=== PATIENT | male | born 1990 | race Caucasian/White ===

== ENCOUNTER 2021-12-15 09:34 | Day surgery (SDC) | payer BC ==
[2021-12-13 16:03] VITALS: BMI 27.6
[2021-12-15] MEDS ORDERED: Iothalamate Meglumine 60% 50 ML VIAL FS ONE (11:29)
[2021-12-15] MEDS ORDERED: Fentanyl 250 MCG/5 ML VIAL ONE (11:30)
[2021-12-15] MEDS ORDERED: Levofloxacin 500 mg/D5W 100 ml Premix Bag ONE (11:41)
[2021-12-15] MEDS ORDERED: Lidocaine 1% PF 5 ML VIAL ONE (11:44)
[2021-12-15] MEDS ORDERED: Dexamethasone 20 MG/5 ML VIAL ONE (11:44)
[2021-12-15] MEDS ORDERED: Ondansetron PF 4 MG/2 ML Vial ONE (11:44)
[2021-12-15] MEDS ORDERED: Ketorolac Tromethamine 30 MG/ML VIAL ONE (11:44)
[2021-12-15] MEDS ORDERED: PROPOFOL 200 MG/20 ML VIAL ONE (11:44)
[2021-12-15] MEDS ORDERED: Phenazopyridine HCl 100 MG TAB ONE (12:30)
[2021-12-15] MEDS ORDERED: Oxybutynin 5 MG TAB ONE (12:31)
== END 2021-12-15 13:40 | disposition home or self-care (01) ==
LOC: SDC 09:34
PROVIDERS: ATTEND Urology
PROC: 0T768DZ Dilation of Right Ureter with Intraluminal Device, Via Natural or Artificial Opening Endoscopic (ICD-10-PCS; principal; 2021-12-15)
DX: N13.2 Hydronephrosis with renal and ureteral calculous obstruction (principal); Z88.8 Allergy status to other drugs, medicaments and biological substances
CPT/HCPCS: 74420; C2617; J1956; J3010; Q9961-U8

== ENCOUNTER 2024-08-27 13:45 | Observation (INO) | payer BC, SELFPAY ==
[2024-08-27 14:16] LABS: #Basophils 0.05 10x3/uL (0.0-0.2); %Basophils 0.8 % (0.0-1.0); %Eosinophils 1.5 % (0.0-10.0); %Lymphocytes 37.3 % (21.0-51.0); %Monocytes 7.6 % (0.0-10.0); %Neutrophils 52.6 % (42.0-75.0); Hematocrit 40.3 % (42.0-52.0); Hemoglobin 14.1 g/dL (14.0-18.0); Mean Corpuscular Hemoglobin 31.8 pg (27.0-31.0); Mean Corpuscular Volume 90.8 fL (78.0-98.0); Mean Platelet Volume 9.3 fL (7.4-10.4); Platelet Count 174 10x3/uL (130-400); RBC Distribution Width 11.9 % (11.5-14.5); Red Blood Cell (RBC) Count 4.44 mill/uL (4.70-6.10)
[2024-08-27 14:37] LABS: ALT (SGPT) 31 U/L (8-55); AST (SGOT) 31 U/L (5-34); Albumin 4.1 g/dL (3.5-5.0); Alkaline Phosphatase 89 U/L (40-110); Anion Gap 14 mmol/L (10-20); BUN (Urea Nitrogen) 13 mg/dL (8.9-20.6); Bilirubin, Total 0.6 mg/dL (0.2-1.2); Calc. Creatinine Clearance 0 mL/min (70-130); Calcium 8.6 mg/dL (7.8-10.44); Carbon Dioxide 21 mmol/L (22-29); Chloride 107 mmol/L (98-107); Estimated GFR 86; Globulin 2.8 g/dL (2.4-3.5); Glucose 98 mg/dL (70-105); Lipase 30 U/L (8-78); Potassium 4.3 mmol/L (3.5-5.1); Protein, Total 6.9 g/dL (6.0-8.3); Sodium 138 mmol/L (136-145)
[2024-08-27] MEDS ORDERED: Morphine 4 MG/ML VIAL SLOW IVP PRN (15:11)
[2024-08-27] MEDS ORDERED: Ketorolac Tromethamine 30 MG (1 mL) VIAL IVP PRN (15:11)
[2024-08-27] MEDS ORDERED: HYDROcodone/Acetaminophen 5/325 mg Tablet PO PRN ×2 (15:11)
[2024-08-27] MEDS ORDERED: Mag-Al 1200 mg/1200 mg/30 ML UDCUP PO PRN (15:11)
[2024-08-27] MEDS ORDERED: Ketorolac Tromethamine 30 MG (1 mL) VIAL ONE (15:21)
[2024-08-27] MEDS ORDERED: HYDROmorphone 0.5 MG/0.5 ML SYRINGE ONE (16:01)
[2024-08-27 17:18] LABS: Bacteria/HPF None Seen HPF (None Seen); Bilirubin Negative (Negative); Blood, Urine 3+ (Negative); CAUTI Indications for Culture Pelvic or flank pain; Calcium Oxalate Crystals 1+ HPF (None Seen); Clarity Clear (Clear); Glucose, Urine (Dipstick) Normal (Negative); Ketone, Urine Negative (Negative); Leukocyte 250 Leu/uL (Negative); Nitrite Negative (Negative); Protein, Urine (Dipstick) 70 mg/dL (Neg-Trace); RBC/HPF Greater than 50 HPF (0-3); Specific Gravity, Urine 1.043 (1.002-1.036); Squamous Epithelial None Seen HPF (0-3); Urobilinogen Normal mg/dL (Less than 2); WBC/HPF 21-50 HPF (0-3)
[2024-08-27 17:20] LABS: Urine Culture Reflex Yes Yes
[2024-08-27 17:28] VITALS: BMI 28.2
[2024-08-27] MEDS: Ondansetron PF 4 MG/2 ML Vial IVP PRN (18:09)
[2024-08-27] MEDS: Morphine 2 MG/ML VIAL SLOW IVP PRN (18:09)
[2024-08-27] MEDS: FLU (Fluarix Triv) TS24-25(6MOS UP)/PF 45 MCG/0.5 ML Syringe IM ONE (18:10)
[2024-08-27] MEDS: D5 1/2 NS w/10 mEq KCl 1,000 ML/1,000 ML BAG IV SCH (20:39)
[2024-08-27] MEDS: Promethazine HCl 25 MG in Sodium Chloride 0.9% 50 ML IVPB SCH (20:40)
[2024-08-28] MEDS ORDERED: cefTRIAXone\\ROCEPHIN 1 GM in Sodium Chloride 0.9% 100 ML IVPB SCH (00:01)
[2024-08-28] MEDS ORDERED: Sodium Chloride 0.9% 1,000 ML IV SCH (00:01)
[2024-08-28] MEDS: Tamsulosin HCl 0.4 MG CAP PO SCH (09:03)
[2024-08-28] MEDS ORDERED: Lidocaine 2% PF 5 ML VIAL ONE (11:47)
[2024-08-28] MEDS ORDERED: PROPOFOL 20 ML ONE ×2 (11:47→13:25)
[2024-08-28] MEDS ORDERED: fentaNYL PF 100 MCG/2 ML SYRINGE ONE (12:48)
[2024-08-28] MEDS ORDERED: Midazolam HCl 2 mg/2 ml Vial ONE (12:49)
[2024-08-28] MEDS ORDERED: Dexamethasone 4 mg/ml Vial ONE (13:14)
[2024-08-28] MEDS ORDERED: Ondansetron PF 4 MG/2 ML Vial ONE (13:14)
[2024-08-28] MEDS ORDERED: Ketorolac Tromethamine 30 MG (1 mL) VIAL ONE (13:38)
[2024-08-28] MEDS: Oxybutynin 5 MG TAB PO PRN (15:25)
[2024-08-29 07:37] VITALS: BP 131/81; TEMP 97.4
== END 2024-08-28 17:24 | disposition home or self-care (01) ==
LOC: ERS 13:45 → SURG B 16:56
PROVIDERS: ADMIT Urology; ATTEND Urology
PROC: 0TF68ZZ Fragmentation in Right Ureter, Via Natural or Artificial Opening Endoscopic (ICD-10-PCS; principal; 2024-08-28)
PROC: 0T768DZ Dilation of Right Ureter with Intraluminal Device, Via Natural or Artificial Opening Endoscopic (ICD-10-PCS; 2024-08-28)
DX: N20.1 Calculus of ureter (principal); Z87.442 Personal history of urinary calculi; Z90.89 Acquired absence of other organs; Z88.8 Allergy status to other drugs, medicaments and biological substances
CPT/HCPCS: 36415; 74176; 74420; 80053; 81001; 82365; 83605; 83690; 85025; 87086; 88300; 94760; 96374; 96375; C2617; G0378; J1100; J1885; J2250; J2272; J2405; J2550; J2704; J3480